=== PATIENT | female | born 1965 | race Caucasian/White ===

== ENCOUNTER 2016-07-29 23:59 | Emergency (ER) | payer OTHER ==
[~2016-07-29] VITALS: Ht 167.6 cm; Wt 101.9 kg
[~2016-07-29 23:59] MED LIST: ALBU1AER9 INH; BUSP15TA70 PO; DICL1GEL28 TOP; ERGO500037 PO; ESCI1TAB9 PO; LEVO150T PO; NAPR500T3 PO; SNQ/50 PO; TOPI50TA16 PO
[2016-07-30 00:02] VITALS: Ht 167.6 cm; Wt 101.9 kg
[2016-07-30] MEDS ORDERED: ONDANSETRON INJ 2 MG/ML 2 ML VIAL IV STA (00:18)
[2016-07-30] MEDS ORDERED: OPTIRAY 320 IV PRN (00:30)
[2016-07-30] MEDS ORDERED: SODIUM CHLORIDE 0.9% 1000ML 1,000 ML IV ONE (00:30)
[2016-07-30] MEDS ORDERED: MoRPHine SULFATE 4 MG/ML 1 ML CARP\\VIAL IV ONE (00:30)
[2016-07-30] MEDS ORDERED: VNTHFA/IN INH (00:32)
[2016-07-30 00:34] LABS: BASO % 0.8 %; BASO ABS # 0.08 K/uL (0-0.2); COMPLETE YES; EOS % 4.8 %; HEMATOCRIT 34.2 % (37-47); IG% 0.2 %; LYMPH ABS # 2.77 K/uL (1.2-3.4); MEAN CELL VOLUME 90.2 fL (80-100); MEAN CORPUSCULAR HEMOGLOBIN 28.8 pg (25-34); MEAN CORPUSCULAR HGB CONC 31.9 g/dl (32-36); MONO % 6.6 %; NEUT % 60.6 %; PLATELET COUNT 240 K/uL (130-400); RED BLOOD COUNT 3.79 M/uL (4.2-5.4); WHITE BLOOD COUNT 10.25 K/uL (4.8-10.8)
[2016-07-30] MEDS ORDERED: TOPI100T20 PO (00:35)
[2016-07-30 00:44] LABS: URINE APPEARANCE CLOUDY (CLEAR); URINE BILIRUBIN NEG (NEG); URINE COLOR YELLOW; URINE EPITHELIAL CELL AUTO >30 /lpf (0-5); URINE NITRITE NEG (NEG); URINE PH 5.5 (4.5-7.5); URINE SPECIFIC GRAVITY 1.028 (1.000-1.030); UROBILINOGEN NEG (NEG); ZZUR CULT IF INDIC CLEAN CATCH NO
[2016-07-30 00:56] LABS: BUN/CREATININE RATIO 14.4 (10-20); CREATININE 0.78 mg/dl (0.60-1.20); POTASSIUM 3.8 mmol/L (3.5-5.1)
[2016-07-30 00:56] LABS: MANUAL MICROSCOPIC REQUIRED? NO; REVIEW REQ? YES
[2016-07-30 00:58] LABS: ALB/GLOB RATIO 0.8 (0.9-2)
[2016-07-30] MEDS ORDERED: MoRPHine SULFATE 4 MG/ML 1 ML CARP\\VIAL IV PRN (02:00)
[2016-07-30 02:43] VITALS: TEMP 36.8
[2016-07-30] MEDS ORDERED: OXYC1TAB3 PO (03:51)
[2016-07-30] MEDS ORDERED: ONDA4TAB10 SL (03:51)
[2016-07-30] MEDS ORDERED: ONDANSETRON HOME PACK 4MG OD TAB PO ONE (04:00)
[2016-07-30] MEDS ORDERED: OXYCODONE IR HOME PACK PO ONE (04:00)
[2016-07-30 04:06] VITALS: BP 110/73; PULSE 76; O2SAT 95
--- NOTE | 2016-07-30 05:21 | EMERGENCY ROOM VISIT NOTE ---
History First contact with patient: 00:07 Chief Complaint: ABDOMINAL PAIN Stated Complaint: SEVERE PAIN IN LOWER LEFT SIDE OF ABD Nursing Triage Summary: pt c/o llq abd pain and nausea since this morning History of Present Illness The patient is a 50 year old female who presents to the Emergency Room with complaints of left-sided abdominal pain and nausea that began earlier today. The patient has a history of inflammatory bowel disease and she states her symptoms feel similar to previous episodes. She has not had fever or chills. No blood in her stool. She is without chest pain or shortness of breath. She has not taken anything [id number] for her symptoms. Review of Systems More than 10 systems were reviewed and otherwise negative with the exception of history of present illness. Past Medical/Surgical History Medical Problems: (1) Abdominal pain (2) Anemia (3) Anxiety (4) Asthma (5) Back pain (6) Back spasm (7) Chest pain (8) Concussion (9) Contusion of multiple sites (10) Depression (11) Diarrheal disease (12) Hypothyroidism (13) Left shoulder strain (14) Lower abdominal pain (15) Pneumonia (16) Sleep apnea (17) Ulcerative colitis (18) Ulcerative colitis (19) Vomiting Surgical Problems: (1) Appendectomy (2) Cholecystectomy Family History Hypertension Social History Smoking Status: Never Smoker Alcohol Use: none Drug Use: none Marital Status: single Housing Status: lives with family Occupation Status: employed Current/Historical Medications Scheduled Buspirone Hcl (Buspar), 15 MG PO BID Doxepin Hcl (Sinequan), 50 MG PO HS Ergocalciferol (Vitamin D 10327 Unit), 50,000 UNIT PO WK Escitalopram Oxalate (Lexapro), 20 MG PO DAILY Levothyroxine Sodium (Synthroid), 150 MCG PO DAILY Ondasetron Odt (Zofran Odt), 4 MG SL Q6H Oxycodone Immediate Rel Tab (Roxicodone Ir), 1-2 TAB PO Q6 Topiramate (Topamax), 150 MG PO BID Scheduled PRN Albuterol Hfa (Ventolin Hfa), 2 PUFFS INH Q6H PRN for SOB/Wheezing Allergies Coded Allergies: BEE STING (Verified Allergy, Severe, ANAPHYLAXIS, 07/30/16) Sulfa Antibiotics (Verified Allergy, Intermediate, Rash/Swelling, 07/30/16) Sulfamethoxazole w/Trimethoprim (Verified Allergy, Intermediate, rash, swelling, 07/30/16) Ketorolac (Unverified Adverse Reaction, Unknown, sick to her stomach and passes out, 07/30/16) Uncoded Allergies: trama (Adverse Reaction, Severe, sick to her stomach and pass out, 01/27/16 ) Physical Exam Vital Signs Date Time Temp Pulse Resp B/P Pulse Ox O2 Delivery O2 Flow Rate FiO2 07/30/16 04:06 76 18 110/73 95 Room Air 07/30/16 02:43 36.8 74 16 133/80 94 Room Air 07/30/16 00:02 37.1 82 18 147/96 97 Room Air Pain Rating (0-10): 2.0 Physical Exam VITALS: Vitals are noted on the nurse's note and reviewed by myself. Vital signs stable. GENERAL: Well-developed, well-nourished, white female, who is in no acute distress and resting comfortably. Patient is cooperative with the examination. HEAD: Normocephalic atraumatic. HEART: Regular rate and rhythm without murmurs gallops or rubs. LUNGS: Clear to auscultation bilaterally without wheezes, rales or rhonchi. No retractions or accessory muscle use. ABDOMEN: Positive normal bowel sounds x 4. Soft with generalized tenderness on palpation. No distinct point tenderness. No rebound or guarding. MUSCULOSKELETAL: No muscle atrophy, erythema, or edema noted. Full range of motion without joint tenderness in all extremities. Medical Decision & Procedures ER Provider Diagnostic Interpretation: Preliminary Findings Only See Final Report For Complete Findings CT ABDOMEN & PELVIS: Comparison 01/27/2016. There is subtle thickening of a segment of sigmoid colon colon with focal oval fat density adjacent surrounding inflammatory change. Findings may relate to epiploic appendagitis versus acute diverticulitis. This has a similar appearance compared prior examination. No free air. No fluid collections. Moderate size hiatal hernia. Cholecystectomy. The liver, spleen, pancreas, adrenal glands and kidneys are unremarkable. Laboratory Results 07/30/16 00:22 Red Blood Count 3.79, Mean Corpuscular Volume 90.2, Mean Corpuscular Hemoglobin 28.8, Mean Corpuscular Hemoglobin Concent 31.9, Mean Platelet Volume 11.0, Neutrophils (%) (Auto) 60.6, Lymphocytes (%) (Auto) 27.0, Monocytes (%) (Auto) 6.6, Eosinophils (%) (Auto) 4.8, Basophils (%) (Auto) 0.8, Neutrophils # (Auto) 6.21, Lymphocytes # (Auto) 2.77, Monocytes # (Auto) 0.68, Eosinophils # (Auto) 0.49, Basophils # (Auto) 0.08 07/30/16 00:22 Test 07/30/16 00:00 07/30/16 00:22 Urine Color YELLOW Urine Appearance CLOUDY (CLEAR) Urine pH 5.5 (4.5-7.5) Urine Specific [place] 1.028 (1.000-1.030) Urine Protein NEG (NEG) Urine Glucose (UA) NEG (NEG) Urine Ketones TRACE (NEG) Urine Occult Blood NEG (NEG) Urine Nitrite NEG (NEG) Urine Bilirubin NEG (NEG) Urine Urobilinogen NEG (NEG) Urine Leukocyte Esterase NEG (NEG) Urine WBC (Auto) 1-5 /hpf (0-5) Urine RBC (Auto) 5-10 /hpf (0-4) Urine Hyaline Casts (Auto) 1-5 /lpf (0-5) Urine Epithelial Cells (Auto) >30 /lpf (0-5) Urine Bacteria (Auto) NEG (NEG) Urine Crystals CALCIUM OXALATE (NONE White Blood Count 10.25 K/uL (4.8-10.8) Red Blood Count 3.79 M/uL (4.2-5.4) Hemoglobin 10.9 g/dL (12.0-16.0) Hematocrit 34.2 % (37-47) Mean Corpuscular Volume 90.2 fL (80-100) Mean Corpuscular Hemoglobin 28.8 pg (25-34) Mean Corpuscular Hemoglobin Concent 31.9 g/dl (32-36) Platelet Count 240 K/uL (130-400) Mean Platelet Volume 11.0 fL (7.4-10.4) Neutrophils (%) (Auto) 60.6 % Lymphocytes (%) (Auto) 27.0 % Monocytes (%) (Auto) 6.6 % Eosinophils (%) (Auto) 4.8 % Basophils (%) (Auto) 0.8 % Neutrophils # (Auto) 6.21 K/uL (1.4-6.5) Lymphocytes # (Auto) 2.77 K/uL (1.2-3.4) Monocytes # (Auto) 0.68 K/uL (0.11-0.59) Eosinophils # (Auto) 0.49 K/uL (0-0.5) Basophils # (Auto) 0.08 K/uL (0-0.2) RDW Standard Deviation 50.1 fL (36.4-46.3) RDW Coefficient of Variation 15.2 % (11.5-14.5) Immature Granulocyte % (Auto) 0.2 % Immature Granulocyte # (Auto) 0.02 K/uL (0.00-0.02) Erythrocyte Sedimentation Rate 56 mm/hr (0-21) Anion Gap 10.0 mmol/L (3-11) Est Creatinine Clear Calc Drug Dose 101.6 ml/min Estimated GFR () 101.3 Estimated GFR (Non- 87.4 BUN/Creatinine Ratio 14.4 (10-20) Lactic Acid Level 0.7 mmol/L (0.4-2.0) Calcium Level 8.0 mg/dl (8.5-10.1) Total Bilirubin 0.1 mg/dl (0.2-1) Aspartate Amino Transf (AST/SGOT) 15 U/L (15-37) Alanine Aminotransferase (ALT/SGPT) 25 U/L (12-78) Alkaline Phosphatase 97 U/L (45-117) Total Protein 7.8 gm/dl (6.4-8.2) Albumin 3.5 gm/dl (3.4-5.0) Globulin 4.3 gm/dl (2.5-4.0) Albumin/Globulin Ratio 0.8 (0.9-2) Lipase 408 U/L (73-393) Medications Administered Medications (Trade) Dose Ordered Sig/Sharonda Route Start Time Stop Time Status Last Admin Dose Admin Sodium Chloride (Nss 1000ml) 1,000 ml @ 999 mls/hr Q1H1M ONCE IV 07/30/16 00:30 07/30/16 01:30 DC 07/30/16 00:29 999 MLS/HR Morphine Sulfate (MoRPHine SULFATE INJ) 4 mg NOW ONCE IV 07/30/16 00:30 07/30/16 00:31 DC 07/30/16 00:30 4 MG Ondansetron HCl (Zofran Inj) 4 mg NOW STAT IV 07/30/16 00:18 07/30/16 00:20 DC 07/30/16 00:30 4 MG Morphine Sulfate (MoRPHine SULFATE INJ) 4 mg Q1H PRN IV 07/30/16 02:00 07/30/16 04:36 DC 07/30/16 02:06 4 MG ED Course Physical exam and history were performed. Nursing notes and EMR were reviewed. Patient appears to have generalized abdominal pain for the past day. IV access was established and labs were obtained. The patient was hydrated and medicated as above. Because of her symptoms and discomfort a CT scan was performed. The patient's blood work is as above and was reviewed. She does not have a significantly elevated white blood cell count. She does have a slight anemia, which appears chronic for her. She is without gross electrolyte imbalance. Her lipase is very slightly elevated but she does not have distinct epigastric abdominal pain. Her urine is without obvious signs of infection. CT scan is as above and shows some subtle thickening of the sigmoid colon. This appears similar to CT scan 6 months ago. The patient does not have obvious surgical abdomen findings on imaging. Her sedimentation rate is slightly elevated, and I believe that her symptoms are related to a mild flare of her inflammatory bowel disease. The patient remained in stable and comfortable condition throughout her emergency department stay. She did not have any deterioration of her symptoms. She will be treated conservatively with fluids and pain medication, and antiemetics. I recommended that she follow with her primary care physician Monday after the weekend. She may also need to follow with GI, and does follow with Marjan Sabillon as an outpatient. The patient was certainly invited to return to the ER with any new, worsening, or concerning symptoms. She is pleased with this plan and was understanding. She rated her discomfort a 1/10 at the time of departure. The chart was completed utilizing [employer] Speech Voice Recognition Software. Grammatical errors, random word insertions, pronoun errors, and incomplete sentences are an occasional consequence of this system due to software limitations, ambient noise, and hardware issues. Any formal questions or concerns about the content, text, or information contained within the body of this dictation should be directly addressed to the provider for clarification. . Medical Decision Differential diagnosis: Etiologies such as appendicitis, diverticulitis, PUD, biliary pathology, UTI, pancreatitis, obstruction, mesenteric ischemia, aortic pathology, infections, inflammatory bowel disease, renal colic, as well as others were entertained. Impression Primary Impression: Abdominal pain Departure Information Dispostion Home / Self-Care Condition GOOD Prescriptions Ondasetron Odt (ZOFRAN ODT) 4 Mg Tab 4 MG SL Q6H for Nausea, #12 TAB Prov: Jerrod Roberts PA-C 07/30/16 Oxycodone Immediate Rel Tab (ROXICODONE IR) 5 Mg Tab 1-2 TAB PO Q6, #15 TAB For initial treatment Prov: Jerrod Roberts PA-C 07/30/16 Forms Call Back Authorization, HOME CARE DOCUMENTATION FORM, Work Instructions, Additional Instructions: Patient was seen and evaluated today in the emergency department fo medical care. Return to work on 08/02/2016. Please excuse. IMPORTANT VISIT INFORMATION Patient Instructions My [facility] Additional Instructions You were seen and evaluated today on an emergency basis only. This is not a substitute for, or an effort to provide, complete comprehensive medical care. It is not possible to recognize and treat all injuries or illnesses in a single emergency department visit. For this reason it is recommended that you followup with your primary care physician on Monday or Monday for ongoing care and evaluation. Oxycodone (OxyIR) 5mg: Take ONE or TWO pills every SIX hours for breakthrough pain. Avoid alcohol, operating machinery or dangerous equipment, working on ladders or roofs, DRIVING, or situations where being under the influence may be dangerous. It is recommended to use an [id number] stool softener such as Colace, 100mg twice daily while taking this medication to avoid constipation. Zofran 1 tablet every 6 hrs as needed for nausea. You are welcome to return to the emergency department anytime with new, worsening, or concerning symptoms. Work Instructions Additional Work Instructions: Patient was seen and evaluated today in the emergency department for medical care. Return to work on 08/02/2016. Please excuse.
--- NOTE | 2016-07-30 05:58 | DIAGNOSTIC IMAGING REPORT ---
ABDOMEN AND PELVIS CT WITH IV AND ORAL CONTRAST CT DOSE: 1913.11 mGy.cm HISTORY: Pain Left side abd pain TECHNIQUE: Multiaxial CT images of the abdomen and pelvis were performed following the use of intravenous and oral contrast. COMPARISON STUDY: 01/27/2016 FINDINGS: Lung bases remain clear. External hernia. Liver spleen and pancreas are unremarkable. Prior cholecystectomy. Bowel pattern is nonobstructive. Small fat-containing focus adjacent to the mid sigmoid colon unchanged in the prior study. This appears to be a chronic focus of appendicitis epiploica. Mild chronic sigmoid diverticulosis. Very small left ovarian cyst. IMPRESSION: 1. Chronic change. Prior cholecystectomy. 2. No acute or interval process. 3. Chronic mid sigmoid change as discussed previously. 4.. Fixed hiatal hernia Electronically signed by: Lalo Xie M.D. 07/30/2016 5:57 AM Dictated Date/Time: 07/30/2016 5:54 AM
[2016-11-30] MEDS ORDERED: ONDA4TAB46 PO (15:19)
[2016-11-30] MEDS ORDERED: FURO-85 PO (15:19)
[2016-11-30] MEDS ORDERED: SUCR1TAB29 PO (15:19)
[2016-11-30] MEDS ORDERED: MULT-506 PO (15:19)
[2016-11-30] MEDS ORDERED: MOME100A INH (15:19)
[2016-11-30] MEDS ORDERED: CYAN10004 PO (15:19)
[2016-11-30] MEDS ORDERED: BETHAMETHASONE TOP (15:19)
[2016-11-30] MEDS ORDERED: DICY10CA55 PO (15:19)
[2016-11-30] MEDS ORDERED: ALPR-411 PO (15:19)
[2016-11-30] MEDS ORDERED: PREG100C PO (15:19)
[2016-11-30] MEDS ORDERED: DICL1GEL12 TOP (15:19)
[2016-11-30] MEDS ORDERED: TIZA4CAP PO (15:19)
[2016-11-30] MEDS ORDERED: CYCL10TA6 PO (15:19)
[2016-11-30] MEDS ORDERED: PANT40TA PO (15:19)
[2016-11-30] MEDS ORDERED: PROM25TA9 PO (15:19)
[2016-11-30] MEDS ORDERED: IBUP-1050 PO (15:19)
[2016-11-30] MEDS ORDERED: BUSP-8 PO (15:19)
== END 2016-07-30 04:02 | disposition home or self-care (01) ==
LOC: C.EDB 07-30 00:01 → C.EDA 07-30 04:02
DX: R10.84 Generalized abdominal pain (principal); E03.9 Hypothyroidism, unspecified; F41.9 Anxiety disorder, unspecified; J45.909 Unspecified asthma, uncomplicated; F32.9 Major depressive disorder, single episode, unspecified; D64.9 Anemia, unspecified; G47.30 Sleep apnea, unspecified; Z87.19 Personal history of other diseases of the digestive system; Z87.820 Personal history of traumatic brain injury; Z90.49 Acquired absence of other specified parts of digestive tract; Z98.890 Other specified postprocedural states; Z79.899 Other long term (current) drug therapy; Z88.2 Allergy status to sulfonamides; Z88.8 Allergy status to other drugs, medicaments and biological substances; Z91.030 Bee allergy status; Z82.49 Family history of ischemic heart disease and other diseases of the circulatory system

== ENCOUNTER 2016-09-28 12:55 | Emergency (ER) | payer OTHER ==
[~2016-09-28] VITALS: Ht 162.6 cm; Wt 121.0 kg
[~2016-09-28 12:55] MED LIST changes: -ALBU1AER9 INH; -DICL1GEL28 TOP; -NAPR500T3 PO; +ONDA4TAB10 SL; +OXYC1TAB3 PO; +TOPI100T20 PO; -TOPI50TA16 PO; +VNTHFA/IN INH
[2016-09-28 13:00] VITALS: TEMP 37.2; Ht 162.6 cm; Wt 121.0 kg
[2016-09-28 13:48] LABS: HEMATOCRIT 34.1 % (37-47); MEAN CELL VOLUME 85.7 fL (80-100); MEAN CORPUSCULAR HEMOGLOBIN 26.6 pg (25-34); MEAN CORPUSCULAR HGB CONC 31.1 g/dl (32-36); MEAN PLATELET VOLUME 10.8 fL (7.4-10.4); PLATELET COUNT 250 K/uL (130-400); RED BLOOD COUNT 3.98 M/uL (4.2-5.4); WHITE BLOOD COUNT 8.02 K/uL (4.8-10.8)
[2016-09-28] MEDS ORDERED: OXYC-609 PO (13:53)
[2016-09-28 13:59] LABS: URINE APPEARANCE CLOUDY (CLEAR); URINE BILIRUBIN NEG (NEG); URINE COLOR YELLOW; URINE EPITHELIAL CELL AUTO >30 /lpf (0-5); URINE NITRITE NEG (NEG); URINE PH 8.5 (4.5-7.5); URINE SPECIFIC GRAVITY 1.021 (1.000-1.030); UROBILINOGEN NEG (NEG); ZZUR CULT IF INDIC CLEAN CATCH NO
[2016-09-28 14:04] LABS: BUN/CREATININE RATIO 12.4 (10-20); CALCIUM 8.9 mg/dl (8.5-10.1); CREATININE 0.87 mg/dl (0.60-1.20); POTASSIUM 3.8 mmol/L (3.5-5.1)
[2016-09-28 14:10] LABS: MANUAL MICROSCOPIC REQUIRED? NO; REVIEW REQ? YES
[2016-09-28] MEDS ORDERED: NITR1CAP16 PO (14:42)
--- NOTE | 2016-09-28 14:43 | EMERGENCY ROOM VISIT NOTE ---
History Report prepared by Martine: Ketty Reich Under the Supervision of: Dr. Vaibhav Rosales M.D. First contact with patient: 13:08 Chief Complaint: URINARY SYMPTOMS Stated Complaint: SPURT WHEN PEE, BURNING, PAINFUL SIDES TO ABD Nursing Triage Summary: pt to the ED with c/o abd discomfort and increased urinary frequency and like she is not emptying was recently tx for a yeast infection at [facility] History of Present Illness The patient is a 51 year old female who presents to the Emergency Room with complaints of persistent dysuria starting yesterday. The patient had a yeast infection several weeks ago. She was treated with 4 doses of Diflucan. Her symptoms have improved. She is still having some discharge. She reports urinary frequency and lower abdominal pain. She denies any recent antibiotic use. She denies any history of diabetes. Source of History: patient Onset: yesterday Position: other (urinary) Quality: other (dysuria) Timing: other (persistent) Associated Symptoms: + abdominal pain Note: Pt reports urinary frequency. Review of Systems All systems have been listed, reviewed, and are negative other than those previously mentioned. Please see Additional Medical History Sheet. Past Medical & Surgical Medical Problems: (1) Abdominal pain (2) Anemia (3) Anxiety (4) Asthma (5) Back pain (6) Back spasm (7) Chest pain (8) Concussion (9) Contusion of multiple sites (10) Depression (11) Diarrheal disease (12) Hypothyroidism (13) Left shoulder strain (14) Lower abdominal pain (15) Pneumonia (16) Sleep apnea (17) Ulcerative colitis (18) Ulcerative colitis (19) Vomiting Surgical Problems: (1) Appendectomy (2) Cholecystectomy Family History Hypertension Social History Smoking Status: Never Smoker Alcohol Use: none Drug Use: none Marital Status: single Housing Status: lives with family Occupation Status: employed Current/Historical Medications Scheduled Buspirone Hcl (Buspar), 15 MG PO BID Doxepin Hcl (Sinequan), 50 MG PO HS Ergocalciferol (Vitamin D 95649 Unit), 50,000 UNIT PO WK Escitalopram Oxalate (Lexapro), 20 MG PO DAILY Levothyroxine Sodium (Synthroid), 150 MCG PO DAILY Nitrofurantoin Monohyd Macro (Macrobid), 100 MG PO BID Ondasetron Odt (Zofran Odt), 4 MG SL Q6H Topiramate (Topamax), 150 MG PO BID Scheduled PRN Albuterol Hfa (Ventolin Hfa), 2 PUFFS INH Q6H PRN for SOB/Wheezing Oxycodone HCl (Oxycodone HCl), 1-2 TABS PO Q6H PRN for Pain Allergies Coded Allergies: BEE STING (Verified Allergy, Severe, ANAPHYLAXIS, 09/28/16) Sulfa Antibiotics (Verified Allergy, Intermediate, Rash/Swelling, 09/28/16) Sulfamethoxazole w/Trimethoprim (Verified Allergy, Intermediate, rash, swelling, 09/28/16) Ketorolac (Unverified Adverse Reaction, Unknown, sick to her stomach and passes out, 09/28/16) Uncoded Allergies: trama (Adverse Reaction, Severe, sick to her stomach and pass out, 01/27/16 ) Physical Exam Vital Signs Date Time Temp Pulse Resp B/P (MAP) Pulse Ox O2 Delivery O2 Flow Rate FiO2 09/28/16 14:05 81 18 131/75 97 Room Air 09/28/16 13:00 37.2 104 18 137/87 95 Room Air Physical Exam GENERAL: Patient awake, alert, oriented x 3. Patient follows commands. Patient does not appear toxic. Patient is adequately hydrated and well- nourished. SKIN: No erythema, pallor, cyanosis or rash HEENT: Normal head, pupils equal, reactive to light and accommodation. LUNGS: Clear to auscultation. No wheezes, no rales, no rhonchi. HEART: No murmurs. No gallops. No rubs ABDOMEN: Obese, soft, nontender, no CVA tenderness. PELVIC: Perineum and vulva with no signs of erythema or infection. Vagina: no discharge, no signs of yeast. Cervix: nontender. Adnexa and uterus nontender. EXTREMITIES: No signs of trauma or infection. NEUROLOGIC: Cranial nerves II-XII within normal limits. No gross motor sensory function deficits. Medical Decision & Procedures Laboratory Results 09/28/16 13:39 09/28/16 13:39 Test 09/28/16 13:12 09/28/16 13:39 09/28/16 14:00 Urine Color YELLOW Urine Appearance CLOUDY (CLEAR) Urine pH 8.5 (4.5-7.5) Urine Specific [place] 1.021 (1.000-1.030) Urine Protein NEG (NEG) Urine Glucose (UA) NEG (NEG) Urine Ketones TRACE (NEG) Urine Occult Blood NEG (NEG) Urine Nitrite NEG (NEG) Urine Bilirubin NEG (NEG) Urine Urobilinogen NEG (NEG) Urine Leukocyte Esterase SMALL (NEG) Urine WBC (Auto) 5-10 /hpf (0-5) Urine RBC (Auto) 5-10 /hpf (0-4) Urine Hyaline Casts (Auto) 5-10 /lpf (0-5) Urine Epithelial Cells (Auto) >30 /lpf (0-5) Urine Bacteria (Auto) NEG (NEG) Urine Crystals (NONE PRSENT) Red Blood Count 3.98 M/uL (4.2-5.4) Mean Corpuscular Volume 85.7 fL (80-100) Mean Corpuscular Hemoglobin 26.6 pg (25-34) Mean Corpuscular Hemoglobin Concent 31.1 g/dl (32-36) RDW Standard Deviation 49.0 fL (36.4-46.3) RDW Coefficient of Variation 15.5 % (11.5-14.5) Mean Platelet Volume 10.8 fL (7.4-10.4) Anion Gap 6.0 mmol/L (3-11) Est Creatinine Clear Calc Drug Dose 95.9 ml/min Estimated GFR () 88.2 Estimated GFR (Non- 76.1 BUN/Creatinine Ratio 12.4 (10-20) Calcium Level 8.9 mg/dl (8.5-10.1) Laboratory results as stated above per my review. ED Course 1312: Past medical records reviewed. The patient was evaluated in room A10. A complete history and physical examination was performed. 1444: Upon reevaluation, the patient is resting comfortably. I discussed today' s findings with her. She verbalized agreement of the treatment plan. She was discharged home. Medical Decision Nurses notes reviewed. Medical history sheet reviewed. Differential diagnosis includes but is not limited to: UTI, pelvic inflammatory disease, yeast infection. Examination does not reveal any yeast. She has no erythema or other signs of infection in the vaginal vault or vulva. Urinalysis reveals a questionable urinary tract infection. She has white cells and red cells but no bacteria. Bladder scan does not reveal urinary retention. Because of the patient's pain we I will start her on Macrobid but she will need to follow-up with her family physician or manager music. Medication Reconcilliation Current Medication List: was personally reviewed by me Blood Pressure Screening Patient's blood pressure: Elevated blood pressure Blood pressure disposition: Elevated BP felt to be situational Impression Primary Impression: Pelvic pain Additional Impressions: Dysuria Anemia Scribe Attestation The scribe's documentation has been prepared under my direction and personally reviewed by me in its entirety. I confirm that the note above accurately reflects all work, treatment, procedures, and medical decision making performed by me. Departure Information Dispostion Home / Self-Care Prescriptions Nitrofurantoin Monohyd Macro (MACROBID) 100 Mg Cap 100 MG PO BID, #10 CAP Prov: Vaibhav Rosales M.D. 09/28/16 Referrals Rai Lamar M.D. (PCP) Patient Instructions My [facility] Additional Instructions 1 Macrobid twice a day for 5 days. Follow-up with your family physician or manager music within the next 2 weeks. A vaginal culture is pending. We will call you if it requires treatment. Problem Qualifiers
[2016-09-28 15:04] VITALS: BP 126/79; PULSE 79; O2SAT 98
[2016-10-01 02:01] LABS: CHLAMYDIA TRACH RNA*** NOT DETECTED (NOT DETECTED); GC (NEIS GONORRHOEAE)RNA** NOT DETECTED (NOT DETECTED)
[2016-11-30] MEDS ORDERED: ONDA4TAB46 PO (15:19)
[2016-11-30] MEDS ORDERED: IBUP-1050 PO (15:19)
[2016-11-30] MEDS ORDERED: CYCL10TA6 PO (15:19)
[2016-11-30] MEDS ORDERED: CYAN10004 PO (15:19)
[2016-11-30] MEDS ORDERED: TIZA4CAP PO (15:19)
[2016-11-30] MEDS ORDERED: BETHAMETHASONE TOP (15:19)
[2016-11-30] MEDS ORDERED: ALPR-411 PO (15:19)
[2016-11-30] MEDS ORDERED: MULT-506 PO (15:19)
[2016-11-30] MEDS ORDERED: PROM25TA9 PO (15:19)
[2016-11-30] MEDS ORDERED: DICY10CA55 PO (15:19)
[2016-11-30] MEDS ORDERED: PANT40TA PO (15:19)
[2016-11-30] MEDS ORDERED: FURO-85 PO (15:19)
[2016-11-30] MEDS ORDERED: MOME100A INH (15:19)
[2016-11-30] MEDS ORDERED: SUCR1TAB29 PO (15:19)
[2016-11-30] MEDS ORDERED: BUSP-8 PO (15:19)
[2016-11-30] MEDS ORDERED: PREG100C PO (15:19)
[2016-11-30] MEDS ORDERED: DICL1GEL12 TOP (15:19)
== END 2016-09-28 15:05 | disposition home or self-care (01) ==
LOC: C.EDB 12:57 → C.EDA 15:05
DX: R10.2 Pelvic and perineal pain (principal); R30.0 Dysuria; D64.9 Anemia, unspecified; F41.9 Anxiety disorder, unspecified; J45.909 Unspecified asthma, uncomplicated; E03.9 Hypothyroidism, unspecified; G47.30 Sleep apnea, unspecified; Z82.49 Family history of ischemic heart disease and other diseases of the circulatory system

== ENCOUNTER → 2016-12-05 | Day surgery (SDC) | payer OTHER ==
[2016-11-30 15:20] VITALS: BMI 43.0
[~2016-12-05] VITALS: Ht 162.6 cm; Wt 113.6 kg
[~2016-12-05] MED LIST changes: +ALPR-411 PO; +BETHAMETHASONE TOP; +BUSP-8 PO; -BUSP15TA70 PO; +CYAN10004 PO; +CYCL10TA6 PO; +DICL1GEL12 TOP; +DICY10CA55 PO; +FURO-85 PO; +IBUP-1050 PO; +LIDOCAINE HCL 2% 2 ML VIAL (20MG/ML) ONE; +MOME100A INH; +MULT-506 PO; -ONDA4TAB10 SL; +ONDA4TAB46 PO; +OXYC-609 PO; -OXYC1TAB3 PO; +PANT40TA PO; +PREG100C PO; +PROM25TA9 PO; +PROPOFOL IV EMULSION 10 MG/ML 20 ML VIAL IV ONE; -SNQ/50 PO; +SODIUM CHLORIDE 0.9% 500ML 500 ML IV ONE; +SUCR1TAB29 PO; +TIZA4CAP PO
[2016-12-05 08:28] VITALS: TEMP 36.6
[2016-12-05 08:29] VITALS: Ht 162.6 cm; Wt 113.6 kg
--- NOTE | 2016-12-05 08:54 | Endo History and Physical ---
History & Physical Date of Service: Dec 05, 2016. Chief Complaint: MELENA, IRON DEFICIENCY ANEMIA Referring Physician: DR CARTY History of Present Illness melena Past Medical History Osteoporosis, Arthritis, Anxiety, Reflux, Sleep Apnea, Thyroid Disease, Depression Past Surgical History Hx Cardiac Surgery: No Hx Internal Defibrillator: No Hx Pacemaker: No Hx Abdominal Surgery: Yes (APPY, ROCHELLE, TUBAL LIGATION, LAP RSO) Hx of Implantable Prosthesis: No Hx Post-Op Nausea and Vomiting: Yes (SEVER PONV) Hx Cancer Surgery: No Hx Thoracic Surgery: No Hx Orthopedic: No Hx Urinary Tract Surgery: No Family History None Social History Smoking Status: Never Smoker Hx Substance Use: No Hx Alcohol Use: No Allergies Coded Allergies: BEE STING (Verified Allergy, Severe, ANAPHYLAXIS, 11/30/16) Sulfa Antibiotics (Verified Allergy, Intermediate, Rash/Swelling, 11/30/16) Sulfamethoxazole w/Trimethoprim (Verified Allergy, Intermediate, rash, swelling, 11/30/16) Tramadol (Verified Allergy, Mild, HIVES, DIZZY, 11/30/16) Ketorolac (Verified Adverse Reaction, Unknown, sick to her stomach and passes out, 12/05/16) Uncoded Allergies: trama (Adverse Reaction, Severe, sick to her stomach and pass out, 01/27/16 ) Current Medications Reported Home Medications Medications Dose Route/Sig Max Daily Dose Days Date Category Dose Instructions [Bethamethasone] 1 Dose TOP DAILY PRN 11/30/16 Reported Zanaflex (Tizanidine HCl) 4 Mg Cap 4 Mg PO DAILY PRN 11/30/16 Reported Phenergan (Promethazine HCl) 25 Mg Tab 25 Mg PO Q6H PRN 11/30/16 Reported Flexeril (Cyclobenzaprine Hcl) 10 Mg Tab 10 Mg PO TID PRN 11/30/16 Reported Carafate (Sucralfate) 1 Gm Tab 1 Gm PO BID PRN 11/30/16 Reported Bentyl (Dicyclomine Hcl) 10 Mg Cap 10 Mg PO TID PRN 11/30/16 Reported Protonix (Pantoprazole Sodium) 40 Mg Tab 40 Mg PO DAILY PRN 11/30/16 Reported Dulera 100/5 Mcg (Mometasone Furoate-Formoterol) 1 Aer Aer 1 Aer INH DAILY PRN 11/30/16 Reported Advil (Ibuprofen) 200 Mg Tab 200-600 Mg PO Q4H PRN 11/30/16 Reported Lasix (Furosemide) 20 Mg Tab 20 Mg PO DAILY PRN 11/30/16 Reported Vitamin B-12 1000 Mcg (Cyanocobalamin) 1,000 Mcg Tab 1,000 Mcg PO DAILY PRN 11/30/16 Reported Multivitamin (Multivitamins) Tab 1 Tab PO AFTERNOON 11/30/16 Reported Xanax (Alprazolam) 0.5 Mg Tab 0.5 Mg PO Q6H PRN 11/30/16 Reported Zofran (Ondansetron HCl) 4 Mg Tab 4 Mg PO TID PRN 11/30/16 Reported Lyrica (Pregabalin) 100 Mg Cap 100 Mg PO BID 11/30/16 Reported Voltaren 1% Top Gel (Diclofenac Sodium (Topical)) 1 % Gel 1 Dose TOP DAILY 11/30/16 Reported Buspirone Hcl 10 Mg Tab 10 Mg PO BID 11/30/16 Reported Oxycodone HCl 5 Mg Tab 1-2 Tabs PO Q6H PRN 09/28/16 Reported Topamax (Topiramate) 100 Mg Tab 150 Mg PO BID 07/30/16 Reported Ventolin Hfa (Albuterol) 200 Puffs/52849 Mcg Aers 2 Puffs INH Q6H PRN 07/30/16 Reported Lexapro (Escitalopram Oxalate) 10 Mg Tab 20 Mg PO QAM 08/27/14 Reported Vitamin D 64637 Unit (Ergocalciferol) 50,000 Unit Cap 50,000 Unit PO WK 08/27/14 Reported sundays Synthroid (Levothyroxine Sodium) 150 Mcg Tab 150 Mcg PO QAM 08/27/14 Reported Vital Signs Weight (Kilograms): 113.64 Height (Feet): 5 Height (Inches): 4 Date Time Temp Pulse Resp B/P (MAP) Pulse Ox O2 Delivery O2 Flow Rate FiO2 12/05/16 08:28 36.6 62 18 118/70 (86) 96 Room Air Physical Exam General Appearance: no apparent distress Respiratory/Chest: Auscultation: breath sounds normal Cardiovascular: Heart Auscultation: RRR Abdomen: Inspection & Palpation: soft Assessment and Plan Melena, iron def
--- NOTE | 2016-12-05 09:38 | Discharge Instructions ---
Endoscopy Patient Instructions Date / Procedure(s) Performed Dec 05, 2016. EGD Allergy Information Coded Allergies: BEE STING (Verified Allergy, Severe, ANAPHYLAXIS, 11/30/16) Sulfa Antibiotics (Verified Allergy, Intermediate, Rash/Swelling, 11/30/16) Sulfamethoxazole w/Trimethoprim (Verified Allergy, Intermediate, rash, swelling, 11/30/16) Tramadol (Verified Allergy, Mild, HIVES, DIZZY, 11/30/16) Ketorolac (Verified Adverse Reaction, Unknown, sick to her stomach and passes out, 12/05/16) Uncoded Allergies: trama (Adverse Reaction, Severe, sick to her stomach and pass out, 01/27/16 ) Discharge Date / Findings Dec 05, 2016. Erosive gastritis. Mild esophagitis. Hiatal hernia. Provider Instructions Activity Restrictions - No exercising or heavy lifting for 24 hours. - Do not drink alcohol the day of the procedure. - Do not drive a car or operate machinery until the day after the procedure. - Do not make any important decisions or sign important papers in 24 hours after the procedure. Following Day: - Return to full activity which may include returning to work/school. Diet Start your diet with liquids and light foods (jello, soup, juice, toast). Then eat your usual diet if not nauseated. Treatment For Common After Affects For mild abdominal pain, bloating, or excessive gas: - Rest - Eat lightly - Lie on right side Follow-Up Information Follow-up with DR CARTY as scheduled Anesthesia Information What You Should Know You have had a procedure that required some medicine to reduce anxiety and discomfort. This treatment is called moderate sedation. After receiving the treatment, you may be sleepy, but you will be able to breathe on your own. The effects of the treatment may last for several hours. Follow these instructions along with Activity/Diet recommendations noted above: * Do NOT do anything where dizziness or clumsiness would be dangerous. * Rest quietly at home today, then you can be up and about tomorrow. * Have a responsible person stay with you the rest of today. * You may have had an I.V. today. If so, you may take the dressing off later today. Recommendations Call your doctor if: * Trouble breathing * Continuous vomiting for more than 24 hours * Temperature above 101 degrees * Severe abdominal pain or bloating * Pain not relieved by pain medicine ordered * There is increased drainage or redness from any incision * A large amount of rectal bleeding greater than 2-3 tablespoons. (If you had a polyp/s removed or have hemorrhoids, a small amount of blood - from the rectum is to be expected.) * You have any unanswered questions or concerns. IN THE EVENT OF A SERIOUS EMERGENCY, GO TO THE NEAREST EMERGENCY ROOM Your discharge instructions were prepared by provider Ibrahima Baltazar. Patient Instructions Signature Page Karo Simon Patient (or Guardian) Signature/Date: I have read and understand the instructions given to me by my caregivers. Caregiver/RN/Doctor Signature/Date: The above-named patient and/or guardian has received patient instructions on this date. + Original Patient Signature Page (only) stays with chart. Please make copy for patient.
--- NOTE | 2016-12-05 09:39 | GI REPORT ---
Procedure Date: 12/05/2016 8:28 AM Procedure: Upper GI endoscopy Indications: Iron deficiency anemia Medicines: See the Anesthesia note for documentation of the administered medications Complications: No immediate complications. Estimated Blood Loss: Estimated blood loss: none. Procedure: Pre-Anesthesia Assessment: - ASA Grade Assessment: III - A patient with severe systemic disease. After obtaining informed consent, the endoscope was passed under direct vision. Throughout the procedure, the patient's blood pressure, pulse, and oxygen saturations were monitored continuously. The Scope was introduced through the mouth, and advanced to the second part of duodenum. The upper GI endoscopy was accomplished without difficulty. The patient tolerated the procedure well. Findings: A medium-sized hiatus hernia was present. The Z-line was found 35 cm from the incisors. LA Grade A (one or more mucosal breaks less than 5 mm, not extending between tops of 2 mucosal folds) esophagitis with no bleeding was found. A few, non-bleeding linear erosions were found in the upper gastric body. There were no stigmata of recent bleeding. The stomach was otherwise normal. Stomach was biopsied. The examined duodenum was normal. Biopsies were taken with a cold forceps for histology. Impression: - Medium-sized hiatus hernia. - Z-line, 35 cm from the incisors. - LA Grade A reflux esophagitis. - Non-bleeding erosive gastritis. Erosions may be from sliding hiatal hernia - Darvin's erosions. Recommendation: - Discharge patient to home. Consider [facility]. Ibrahima Lockhart M.D. Ibrahima Lockhart MD 12/05/2016 9:38:05 AM This report has been signed electronically. Note Initiated On: 12/05/2016 8:28 AM I attest to the content of the Intraoperative Record and orders documented therein, exceptions below
[2016-12-05 09:50] VITALS: BP 113/73; PULSE 58; O2SAT 97
--- NOTE | 2016-12-05 10:20 | Anesthesiology Progress Note ---
Anesthesia Post Op Note Date & Time Dec 05, 2016 at 10:20 Vital Signs Pain Intensity: 0 Vital Signs Past 12 Hours Date Time Temp Pulse Resp B/P (MAP) Pulse Ox O2 Delivery O2 Flow Rate FiO2 12/05/16 09:50 58 20 113/73 (86) 97 Room Air 12/05/16 09:35 57 18 124/72 (89) 97 Room Air 12/05/16 09:20 61 18 110/74 (86) 96 Room Air 12/05/16 08:28 36.6 62 18 118/70 (86) 96 Room Air Notes Mental Status: alert / awake / arousable, participated in evaluation Pt Amnestic to Procedure: Yes Nausea / Vomiting: adequately controlled Pain: adequately controlled Airway Patency, RR, SpO2: stable & adequate BP & HR: stable & adequate Hydration State: stable & adequate Anesthetic Complications: no major complications apparent
== END | disposition home or self-care (01) ==
LOC: C.GI 07:39
PROVIDERS: ATTEND Internal Medicine Gastroenterology
DX: K92.1 Melena (principal); K44.9 Diaphragmatic hernia without obstruction or gangrene; K20.9 Esophagitis, unspecified; D50.9 Iron deficiency anemia, unspecified; M19.90 Unspecified osteoarthritis, unspecified site; M81.0 Age-related osteoporosis without current pathological fracture; F41.9 Anxiety disorder, unspecified; K21.9 Gastro-esophageal reflux disease without esophagitis; G47.30 Sleep apnea, unspecified; E03.9 Hypothyroidism, unspecified; Z90.49 Acquired absence of other specified parts of digestive tract; Z90.89 Acquired absence of other organs; Z98.51 Tubal ligation status; J44.9 Chronic obstructive pulmonary disease, unspecified; E66.9 Obesity, unspecified; Z86.69 Personal history of other diseases of the nervous system and sense organs

== ENCOUNTER → 2016-12-20 | Outpatient (CLI) | payer OTHER ==
[~2016-12-20] MED LIST changes: -LIDOCAINE HCL 2% 2 ML VIAL (20MG/ML) ONE; -PROPOFOL IV EMULSION 10 MG/ML 20 ML VIAL IV ONE; -SODIUM CHLORIDE 0.9% 500ML 500 ML IV ONE
--- NOTE | 2016-12-20 11:31 | DIAGNOSTIC IMAGING REPORT ---
DOUBLE CONTRAST UPPER GI SERIES CLINICAL HISTORY: HIATAL HERNIA ON EGD, REFLUX DISEASE. COMPARISON STUDY: None. FLUOROSCOPY TIME: 1.1 minutes. FINDINGS: Esophageal motility was normal. A large sliding type hiatal hernia was noted with partially intrathoracic stomach. The gastric cardia and fundus were intrathoracic in location. Several duodenal diverticula are noted. No additional abnormalities are identified. No reflux was elicited. 25 fluoroscopic images were obtained. IMPRESSION: 1. Large sliding type hiatal hernia with the gastric cardia and fundus located within the chest. 2. Several duodenal diverticula. Electronically signed by: Johnny Pastor M.D. 12/20/2016 10:20 AM Dictated Date/Time: 12/20/2016 10:14 AM
== END | disposition home or self-care (01) ==
LOC: C.RAD 09:04
PROVIDERS: ATTEND Nurse Practitioner Family
DX: K44.9 Diaphragmatic hernia without obstruction or gangrene (principal); K21.0 Gastro-esophageal reflux disease with esophagitis; K25.7 Chronic gastric ulcer without hemorrhage or perforation

== ENCOUNTER → 2017-02-21 | Day surgery (SDC) | payer OTHER ==
[2017-02-20 09:20] VITALS: BMI 43.0
[~2017-02-21] VITALS: Ht 162.6 cm; Wt 113.6 kg
[~2017-02-21] MED LIST changes: +LIDOCAINE HCL 2% 2 ML VIAL (20MG/ML) ONE; +MIDAZOLAM HCL 1 MG/ML 2ML VIAL ONE; +ONDANSETRON INJ 2 MG/ML 2 ML VIAL ONE; +PROPOFOL IV EMULSION 10 MG/ML 20 ML VIAL IV ONE; +SODIUM CHLORIDE 0.9% 500ML 500 ML IV ONE
[2017-02-21 09:13] VITALS: Ht 162.6 cm; Wt 113.6 kg
--- NOTE | 2017-02-21 09:52 | Endo History and Physical ---
History & Physical Date of Service: Feb 21, 2017. Chief Complaint: RECTAL BLEEDING AND ABD PAIN Referring Physician: DR MENDEZ History of Present Illness Patient with FHx of colon cancer (mother at age 40s). here for screening colonoscopy. Also reports intermittent rectal bleed. Past Medical History Osteoporosis, Arthritis, Anxiety, Reflux, Sleep Apnea, Thyroid Disease, Depression Past Surgical History Hx Cardiac Surgery: No Hx Internal Defibrillator: No Hx Pacemaker: No Hx Abdominal Surgery: Yes (APPY, ROCHELLE, TUBAL LIGATION, LAP RSO) Hx of Implantable Prosthesis: No Hx Post-Op Nausea and Vomiting: Yes (SEVER PONV) Hx Cancer Surgery: No Hx Thoracic Surgery: No Hx Orthopedic: No Hx Urinary Tract Surgery: No Family History None Social History Smoking Status: Never Smoker Hx Substance Use: No Hx Alcohol Use: No Allergies Coded Allergies: BEE STING (Verified Allergy, Severe, ANAPHYLAXIS, 02/21/17) Sulfa Antibiotics (Verified Allergy, Intermediate, Rash/Swelling, 02/21/17 ) Sulfamethoxazole w/Trimethoprim (Verified Allergy, Intermediate, rash, swelling, 02/21/17) Tramadol (Verified Allergy, Mild, HIVES, DIZZY, 02/21/17) Barium (Verified Allergy, Unknown, ITCHING, NAUSEA/DIARRHEA, 02/21/17) Ketorolac (Verified Adverse Reaction, Unknown, sick to her stomach and passes out, 02/21/17) Uncoded Allergies: trama (Adverse Reaction, Severe, sick to her stomach and pass out, 01/27/16 ) Current Medications Reported Home Medications Medications Dose Route/Sig Max Daily Dose Days Date Category Dose Instructions [Bethamethasone] 1 Dose TOP DAILY PRN 11/30/16 Reported Zanaflex (Tizanidine HCl) 4 Mg Cap 4 Mg PO DAILY PRN 11/30/16 Reported Phenergan (Promethazine HCl) 25 Mg Tab 25 Mg PO Q6H PRN 11/30/16 Reported Flexeril (Cyclobenzaprine Hcl) 10 Mg Tab 10 Mg PO TID PRN 11/30/16 Reported Carafate (Sucralfate) 1 Gm Tab 1 Gm PO BID PRN 11/30/16 Reported Bentyl (Dicyclomine Hcl) 10 Mg Cap 10 Mg PO TID PRN 11/30/16 Reported Protonix (Pantoprazole Sodium) 40 Mg Tab 40 Mg PO DAILY PRN 11/30/16 Reported Dulera 100/5 Mcg (Mometasone Furoate-Formoterol) 1 Aer Aer 1 Aer INH DAILY PRN 11/30/16 Reported Advil (Ibuprofen) 200 Mg Tab 200-600 Mg PO Q4H PRN 11/30/16 Reported Lasix (Furosemide) 20 Mg Tab 20 Mg PO DAILY PRN 11/30/16 Reported Vitamin B-12 1000 Mcg (Cyanocobalamin) 1,000 Mcg Tab 1,000 Mcg PO DAILY PRN 11/30/16 Reported Multivitamin (Multivitamins) Tab 1 Tab PO AFTERNOON 11/30/16 Reported Xanax (Alprazolam) 0.5 Mg Tab 0.5 Mg PO Q6H PRN 11/30/16 Reported Zofran (Ondansetron HCl) 4 Mg Tab 4 Mg PO TID PRN 11/30/16 Reported Lyrica (Pregabalin) 100 Mg Cap 100 Mg PO BID 11/30/16 Reported Voltaren 1% Top Gel (Diclofenac Sodium (Topical)) 1 % Gel 1 Dose TOP DAILY 11/30/16 Reported Buspirone Hcl 10 Mg Tab 10 Mg PO BID 11/30/16 Reported Oxycodone HCl 5 Mg Tab 1-2 Tabs PO Q6H PRN 09/28/16 Reported Topamax (Topiramate) 100 Mg Tab 150 Mg PO BID 07/30/16 Reported Ventolin Hfa (Albuterol) 200 Puffs/77872 Mcg Aers 2 Puffs INH Q6H PRN 07/30/16 Reported Lexapro (Escitalopram Oxalate) 10 Mg Tab 20 Mg PO QAM 08/27/14 Reported Vitamin D 21231 Unit (Ergocalciferol) 50,000 Unit Cap 50,000 Unit PO WK 08/27/14 Reported sundays Synthroid (Levothyroxine Sodium) 150 Mcg Tab 150 Mcg PO QAM 08/27/14 Reported Vital Signs Weight (Kilograms): 113.64 Height (Feet): 5 Height (Inches): 4 Date Time Temp Pulse Resp B/P (MAP) Pulse Ox O2 Delivery O2 Flow Rate FiO2 02/21/17 09:19 37.1 75 16 131/75 (93) 96 Room Air Physical Exam General Appearance: no apparent distress Respiratory/Chest: Auscultation: breath sounds normal Cardiovascular: Heart Auscultation: RRR Abdomen: Inspection & Palpation: soft, non-distended Assessment and Plan I explained the risk and benefit of colonoscopy, she understood and consented.
--- NOTE | 2017-02-21 10:21 | Discharge Instructions ---
Endoscopy Patient Instructions Date / Procedure(s) Performed Feb 21, 2017. Colonoscopy Allergy Information Coded Allergies: BEE STING (Verified Allergy, Severe, ANAPHYLAXIS, 02/21/17) Sulfa Antibiotics (Verified Allergy, Intermediate, Rash/Swelling, 02/21/17 ) Sulfamethoxazole w/Trimethoprim (Verified Allergy, Intermediate, rash, swelling, 02/21/17) Tramadol (Verified Allergy, Mild, HIVES, DIZZY, 02/21/17) Barium (Verified Allergy, Unknown, ITCHING, NAUSEA/DIARRHEA, 02/21/17) Ketorolac (Verified Adverse Reaction, Unknown, sick to her stomach and passes out, 02/21/17) Uncoded Allergies: trama (Adverse Reaction, Severe, sick to her stomach and pass out, 01/27/16 ) Discharge Date / Findings Feb 21, 2017. One cecal polyp hemorrhoids and diverticulosis Medication Instructions Stopped Medication(s): MVI Reported Home Medications Medications Dose Route/Sig Max Daily Dose Days Date Category Dose Instructions [Bethamethasone] 1 Dose TOP DAILY PRN 11/30/16 Reported Zanaflex (Tizanidine HCl) 4 Mg Cap 4 Mg PO DAILY PRN 11/30/16 Reported Phenergan (Promethazine HCl) 25 Mg Tab 25 Mg PO Q6H PRN 11/30/16 Reported Flexeril (Cyclobenzaprine Hcl) 10 Mg Tab 10 Mg PO TID PRN 11/30/16 Reported Carafate (Sucralfate) 1 Gm Tab 1 Gm PO BID PRN 11/30/16 Reported Bentyl (Dicyclomine Hcl) 10 Mg Cap 10 Mg PO TID PRN 11/30/16 Reported Protonix (Pantoprazole Sodium) 40 Mg Tab 40 Mg PO DAILY PRN 11/30/16 Reported Dulera 100/5 Mcg (Mometasone Furoate-Formoterol) 1 Aer Aer 1 Aer INH DAILY PRN 11/30/16 Reported Advil (Ibuprofen) 200 Mg Tab 200-600 Mg PO Q4H PRN 11/30/16 Reported Lasix (Furosemide) 20 Mg Tab 20 Mg PO DAILY PRN 11/30/16 Reported Vitamin B-12 1000 Mcg (Cyanocobalamin) 1,000 Mcg Tab 1,000 Mcg PO DAILY PRN 11/30/16 Reported Multivitamin (Multivitamins) Tab 1 Tab PO AFTERNOON 11/30/16 Reported Xanax (Alprazolam) 0.5 Mg Tab 0.5 Mg PO Q6H PRN 11/30/16 Reported Zofran (Ondansetron HCl) 4 Mg Tab 4 Mg PO TID PRN 11/30/16 Reported Lyrica (Pregabalin) 100 Mg Cap 100 Mg PO BID 11/30/16 Reported Voltaren 1% Top Gel (Diclofenac Sodium (Topical)) 1 % Gel 1 Dose TOP DAILY 11/30/16 Reported Buspirone Hcl 10 Mg Tab 10 Mg PO BID 11/30/16 Reported Oxycodone HCl 5 Mg Tab 1-2 Tabs PO Q6H PRN 09/28/16 Reported Topamax (Topiramate) 100 Mg Tab 150 Mg PO BID 07/30/16 Reported Ventolin Hfa (Albuterol) 200 Puffs/77045 Mcg Aers 2 Puffs INH Q6H PRN 07/30/16 Reported Lexapro (Escitalopram Oxalate) 10 Mg Tab 20 Mg PO QAM 08/27/14 Reported Vitamin D 03081 Unit (Ergocalciferol) 50,000 Unit Cap 50,000 Unit PO WK 08/27/14 Reported sundays Synthroid (Levothyroxine Sodium) 150 Mcg Tab 150 Mcg PO QAM 08/27/14 Reported Provider Instructions Activity Restrictions - No exercising or heavy lifting for 24 hours. - Do not drink alcohol the day of the procedure. - Do not drive a car or operate machinery until the day after the procedure. - Do not make any important decisions or sign important papers in 24 hours after the procedure. Following Day: - Return to full activity which may include returning to work/school. Diet Start your diet with liquids and light foods (jello, soup, juice, toast). Then eat your usual diet if not nauseated. Treatment For Common After Affects For mild abdominal pain, bloating, or excessive gas: - Rest - Eat lightly - Lie on right side Follow-Up Information Await path results. Apply hemorrhoidal suppositories. Follow-up with DR MENDEZ as scheduled Anesthesia Information What You Should Know You have had a procedure that required some medicine to reduce anxiety and discomfort. This treatment is called moderate sedation. After receiving the treatment, you may be sleepy, but you will be able to breathe on your own. The effects of the treatment may last for several hours. Follow these instructions along with Activity/Diet recommendations noted above: * Do NOT do anything where dizziness or clumsiness would be dangerous. * Rest quietly at home today, then you can be up and about tomorrow. * Have a responsible person stay with you the rest of today. * You may have had an I.V. today. If so, you may take the dressing off later today. Recommendations Call your doctor if: * Trouble breathing * Continuous vomiting for more than 24 hours * Temperature above 101 degrees * Severe abdominal pain or bloating * Pain not relieved by pain medicine ordered * There is increased drainage or redness from any incision * A large amount of rectal bleeding greater than 2-3 tablespoons. (If you had a polyp/s removed or have hemorrhoids, a small amount of blood - from the rectum is to be expected.) * You have any unanswered questions or concerns. IN THE EVENT OF A SERIOUS EMERGENCY, GO TO THE NEAREST EMERGENCY ROOM Your discharge instructions were prepared by provider Anam Allen. Patient Instructions Signature Page Karo Simon Patient (or Guardian) Signature/Date: I have read and understand the instructions given to me by my caregivers. Caregiver/RN/Doctor Signature/Date: The above-named patient and/or guardian has received patient instructions on this date. + Original Patient Signature Page (only) stays with chart. Please make copy for patient.
--- NOTE | 2017-02-21 10:24 | GI REPORT ---
Procedure Date: 02/21/2017 9:53 AM Procedure: Colonoscopy Indications: Rectal bleeding Medicines: Monitored Anesthesia Care Complications: No immediate complications. Estimated Blood Loss: Estimated blood loss: none. Procedure: Pre-Anesthesia Assessment: - Prior to the procedure, a History and Physical was performed, and patient medications and allergies were reviewed. The patient is competent. The risks and benefits of the procedure and the sedation options and risks were discussed with the patient. All questions were answered and informed consent was obtained. Patient identification and proposed procedure were verified by the physician and the nurse in the procedure room. Mental Status Examination: alert and oriented. Airway Examination: normal oropharyngeal airway and neck mobility. Respiratory Examination: clear to auscultation. CV Examination: normal. ASA Grade Assessment: II - A patient with mild systemic disease. After reviewing the risks and benefits, the patient was deemed in satisfactory condition to undergo the procedure. The anesthesia plan was to use monitored anesthesia care (MAC). Immediately prior to administration of medications, the patient was re-assessed for adequacy to receive sedatives. The heart rate, respiratory rate, oxygen saturations, blood pressure, adequacy of pulmonary ventilation, and response to care were monitored throughout the procedure. The physical status of the patient was re-assessed after the procedure. After I obtained informed consent, the scope was passed under direct vision. Throughout the procedure, the patient's blood pressure, pulse, and oxygen saturations were monitored continuously. The Scope was introduced through the anus and advanced to the terminal ileum. The colonoscopy was performed without difficulty. The patient tolerated the procedure well. The quality of the bowel preparation was good. The terminal ileum, ileocecal valve, appendiceal orifice, and rectum were photographed. Scope insertion time was 3 minutes. Scope withdrawal time was 10 minutes. The total duration of the procedure was 15 minutes. Findings: The perianal and digital rectal examinations were normal. The terminal ileum appeared normal. A 8 mm polyp was found in the cecum. The polyp was sessile. The polyp was removed with a hot snare. Resection and retrieval were complete. Verification of patient identification for the specimen was done by the physician and nurse using the patient's name and date. Estimated blood loss: none. Multiple small-mouthed diverticula were found in the sigmoid colon. Non-bleeding internal hemorrhoids were found during retroflexion. The hemorrhoids were small. Impression: - The examined portion of the ileum was normal. - One 8 mm polyp in the cecum, removed with a hot snare. Resected and retrieved. - Diverticulosis in the sigmoid colon. - Non-bleeding internal hemorrhoids. Recommendation: - Discharge patient to home. - Await pathology results. - Preparation H suppository: Insert rectally BID for 1 week. - Repeat colonoscopy for surveillance based on pathology results. Anam Allen MD 02/21/2017 10:23:41 AM This report has been signed electronically. Note Initiated On: 02/21/2017 9:53 AM I attest to the content of the Intraoperative Record and orders documented therein, exceptions below
[2017-02-21 10:43] VITALS: BP 133/97; PULSE 71; O2SAT 96
--- NOTE | 2017-02-21 10:43 | Anesthesiology Progress Note ---
Anesthesia Post Op Note Date & Time Feb 21, 2017 at 10:43 Vital Signs Pain Intensity: 0 Vital Signs Past 12 Hours Date Time Temp Pulse Resp B/P (MAP) Pulse Ox O2 Delivery O2 Flow Rate FiO2 02/21/17 10:36 69 16 133/83 (100) 68 Room Air 02/21/17 10:24 68 16 126/81 (96) 96 Room Air 02/21/17 10:19 81 16 124/80 (95) 97 Room Air 02/21/17 09:19 37.1 75 16 131/75 (93) 96 Room Air Notes Mental Status: alert / awake / arousable, participated in evaluation Pt Amnestic to Procedure: Yes Nausea / Vomiting: adequately controlled Pain: adequately controlled Airway Patency, RR, SpO2: stable & adequate BP & HR: stable & adequate Hydration State: stable & adequate Anesthetic Complications: no major complications apparent
== END | disposition home or self-care (01) ==
LOC: C.GI 08:34
PROVIDERS: ATTEND Student in an Organized Health Care Education/Training Program
DX: K62.5 Hemorrhage of anus and rectum (principal); R10.9 Unspecified abdominal pain; D12.0 Benign neoplasm of cecum; K57.30 Diverticulosis of large intestine without perforation or abscess without bleeding; K64.8 Other hemorrhoids; J45.909 Unspecified asthma, uncomplicated; K21.9 Gastro-esophageal reflux disease without esophagitis; F32.9 Major depressive disorder, single episode, unspecified; E66.9 Obesity, unspecified; Z68.41 Body mass index [BMI] 40.0-44.9, adult; F41.9 Anxiety disorder, unspecified; Z88.2 Allergy status to sulfonamides; Z90.89 Acquired absence of other organs; Z90.49 Acquired absence of other specified parts of digestive tract; Z88.1 Allergy status to other antibiotic agents; Z79.899 Other long term (current) drug therapy; Z80.0 Family history of malignant neoplasm of digestive organs